=== PATIENT | female | born 1985 | race Caucasian/White ===

== ENCOUNTER → 2018-09-20 | Outpatient (CLI) | payer OTHER ==
[~2018-09-20] MED LIST: ADVIL200 MG PO; ALBUTEROL0.09 MG/A2 IH; AMOXICILLIN500 MG PO; AMOXIL500 MG PO; ANUSOL-HC25 MG R; ATARAX25 MG PO; ATIVAN1 MG PO; BACTRIM DS 8001 TA1 PO; CALCIUM 500500 M2 PO; CATAFLAM50 MG PO; CIPRO250 MG PO; CIPRO500 MG PO; CLARITIN-D 10 M1 T21 PO; CLARITIN10 MG PO; CLINDAMYCIN HC300 MG PO; COLACE100 MG PO; CORAL CALCIUM185 MG PO; DAYPRO600 M1 PO; DAYPRO600 MG PO; DONNATAL1 TAB PO; FIORICET 325 MG1 TAB PO; FLAGYL250 MG PO; FLEXERIL5 MG PO; GYNE-LOTRIMIN1% VG; IBU800 M1 PO; LOMOTIL 0.025 M1 TAB PO; MACROBID100 M1 PO; MEDROL DOSEPAK4 MG PO; MIRALAX POWDER255 G1 PO; MOTRIN800 MG PO; MULTIPLE VITAMI1 CAP PO; NAPROSYN500 MG PO; Nystatin Ointme30 GM T; PREDNISONE20 MG PO; PREVACID30 M1 PO; PREVACID30 MG PO; PROTONIX40 MG PO; PROVENTIL0.09 MG/AC IH; PYRIDIUM200 M1 PO; PYRIDIUM200 MG PO; ROBAXIN750 MG PO; SYNTHROID0.125 MG PO; TESSALON PERLE100 M1 PO; TOBRAMYCIN 5 ML5 M1 OPH; TRAMADOL HCL50 MG PO; ULTRAM50 MG PO; VIBRAMYCIN100 MG PO; VICODIN 500 MG-1 TAB PO; VITAMIN D1000 IU PO; VITAMIN D5000 IU PO; VOLTAREN50 M1 PO; ZITHROMAX Z PA250 MG PO; ZOFRAN ODT4 MG PO; ZOFRAN ODT4 MG SL; Zofran4 MG PO
== END ==
LOC: RAD 12:48
DX: M54.5 Low back pain (principal); M54.6 Pain in thoracic spine; R20.0 Anesthesia of skin

== ENCOUNTER → 2021-03-15 | Outpatient (CLI) | payer OTHER | END | disposition home or self-care (01) | LOC: US 16:24 | PROVIDERS: ATTEND Podiatrist | DX: M79.604 Pain in right leg (principal); R60.0 Localized edema ==

== ENCOUNTER 2021-07-03 21:32 | Emergency (ER) | payer OTHER ==
[~2021-07-03] VITALS: Ht 162.5 cm; Wt 135.2 kg
[2021-07-03] MEDS ORDERED: NAPROXEN250 MG PO (21:59)
== END 2021-07-03 22:15 | disposition home or self-care (01) ==
LOC: ED 21:32
DX: M25.571 Pain in right ankle and joints of right foot (principal); L30.4 Erythema intertrigo; Z91.041 Radiographic dye allergy status

== ENCOUNTER → 2024-05-08 | Outpatient (CLI) | payer OTHER ==
[~2024-05-08] MED LIST changes: +NAPROXEN250 MG PO
== END | disposition home or self-care (01) ==
LOC: RAD 10:38
PROVIDERS: ATTEND Chiropractor
DX: M47.815 Spondylosis without myelopathy or radiculopathy, thoracolumbar region (principal); M48.07 Spinal stenosis, lumbosacral region; M54.6 Pain in thoracic spine; M54.50 Low back pain, unspecified